=== PATIENT | male | born 1965 | race Caucasian/White ===

== ENCOUNTER 2024-01-23 22:14 | Emergency (ER) | payer OTHER ==
[2024-01-23 22:36] LABS: BASOPHILS % (AUTO) 0.5 %; EOSINOPHILS # (AUTO) 0.1 10^3/uL (0.0-0.7); EOSINOPHILS % (AUTO) 0.9 %; HCT - HEMATOCRIT 43.7 % (42.0-52.0); HGB - HEMOGLOBIN 14.6 g/dL (14.0-18.0); LYMPHOCYTES # (AUTO) 1.9 10^3/uL (1.5-3.5); MEAN CORPUSCULAR HEMOGLOBIN 29.2 pg (27.0-31.0); MEAN CORPUSCULAR HGB CONC 33.4 g/dL (32.0-36.0); MEAN CORPUSCULAR VOLUME 87.4 fL (80.0-94.0); MEAN PLATELET VOLUME 10.2 fL (7.4-11.4); MONOCYTES # (AUTO) 0.6 10^3/uL (0.0-1.0); MONOCYTES % (AUTO) 8.4 %; PLT - PLATELET COUNT 283 10^3/uL (130-450); RED CELL DISTRIBUTION WIDTH 13.5 % (12.0-15.0); WHITE BLOOD COUNT 6.6 x10^3/uL (4.8-10.8)
--- NOTE | 2024-01-23 22:40 | ED Physician Documentation ---
PD HPI FOCAL NEURO - Stated complaint Stated Complaint: L SIDE ARM/LEG NUMB - Chief complaint Chief Complaint: Neuro - History obtained from History obtained from: Patient - Additional information Additional information: HPI from patient. Approximately 2 hours [employer], while seated at work, patient had rapid onset of lightheadedness, visual changes ("saw stars", per patient), generalized weakness, mild generalized headache, and LUE/LLE paresthesias. He felt like he might pass out but did not have LOC. Denies chest pain, palpitations, dyspnea. Symptoms did not change with standing/ambulating, but have gradually resolved [employer] without specific intervention. Denies h/o similar symptoms. He notes that he is still having intermittent LUE/LLE paresthesias which are more pronounced in distal left arm and leg. PD PAST MEDICAL HISTORY - Past Medical History Past Medical History: No - Past Surgical History Past Surgical History: Yes General: Appendectomy - Present Medications Home Medications: Ambulatory Orders Medication Instructions Recorded Confirmed No Known Home Medications 01/23/24 01/23/24 - Allergies Allergies/Adverse Reactions: Allergies Allergy/AdvReac Type Severity Reaction Status Date / Time No Known Drug Allergies Allergy Verified 01/23/24 22:22 - Social History Does the pt smoke?: No Smoking Status: Never smoker Does the pt drink ETOH?: No Does the pt have substance abuse?: No - Immunizations Immunizations are current?: Yes PD ED PE NORMAL - Vitals Vital signs reviewed: Yes - General General: Alert and oriented X 3, No acute distress, Well developed/nourished - HEENT HEENT: PERRL, EOMI - Cardiac Cardiac: RRR, No murmur, No gallop, No rub - Respiratory Respiratory: No respiratory distress, Clear bilaterally - Abdomen Abdomen: Soft, Non tender - Derm Derm: Normal color - Neuro Neuro: Alert and oriented X 3, acid changer 2-12 intact, No motor deficit, No sensory deficit, Normal speech Eye Opening: Spontaneous Motor: Obeys Commands Verbal: Oriented GCS Score: 15 NIHSS - Level of Consciousness Level of consciousness: (0) Alert, Keenly responsive LOC Questions: (0) Answers both Q's correct LOC Commands: (0) Performs both correctly - Gaze Best Gaze: (0) Normal - Visual Visual: (0) No loss - Facial Palsy Facial Palsy: (0) Normal, symmetrical movement - Motor Arms (both separate) Motor Arm (right): (0) No drift Motor Arm (left): (0) No drift - Motor Legs (both separate) Motor Leg (right): (0) No drift Motor Leg (left): (0) No drift - Limb Ataxia Limb Ataxia: (0) Absent - Sensory Sensory: (0) Normal - Best Language Best Language: (0) No aphasia - Dysarthria Dysarthria: (0) Normal - Extinction and Inattention (formally neg Extinction and inattention: (0) No abnormality - Total Score/Results Total Score/Result: 0 Results - Vitals Vitals: Oxygen O2 Source Room air - EKG (time done) No standard instances EKG releavant findings:: EKG personally interpreted by author of this note. Relevant findings are: Rate: Rate (enter#) (59) Rhythm: NSR [place]: Normal Intervals: Normal NV, QRS normal QRS: Normal Ischemia: Normal ST segments - Labs Labs: Laboratory Tests 01/23/24 01/23/24 22:31 22:31 WBC 6.6 RBC 5.00 Hgb 14.6 Hct 43.7 MCV 87.4 MCH 29.2 MCHC 33.4 RDW 13.5 Plt Count 283 MPV 10.2 Neut # (Auto) 4.0 Lymph # (Auto) 1.9 [place] # (Auto) 0.6 Eos # (Auto) 0.1 Baso # (Auto) 0.0 Absolute Nucleated RBC 0.00 Nucleated RBC % 0.0 Sodium 138 Potassium 3.8 Chloride 106 Carbon Dioxide 25 Anion Gap 7.0 BUN 12 Creatinine 0.9 Estimated GFR (MDRD) 86 L Glucose 95 Calcium 9.6 Total Bilirubin 0.5 AST 16 ALT 14 Alkaline Phosphatase 68 Troponin I High Sens 3.1 Total Protein 7.4 Albumin 4.6 Globulin 2.8 Albumin/Globulin Ratio 1.6 Lipase 20 - Rads (name of study) CTA head/neck Relevant Findings:: Prelim report reviewed, See rad report chest xray Relevant Findings:: Prelim report reviewed, EMP independent interpretation of test, See rad report PD Medical Decision Making - ED course Complexity details: reviewed results, re-evaluated patient, considered differential, d/w patient ED course: No concerning nor diagnostic findings on tonight's tests including blood tests (includes normal hs-cTn), EKG, CXR, CTA head/neck. Etiology of symptoms is not apparent at this time. He is asymptomatic for most of ED stay except for mild episodic LUE/LLE paresthesias early in stay (he was having paresthesias during HPI/ROS but no diminished LTS intact on NIHSS exam; I commented on this to patient and he says that the symptoms had resolved between the HPI/ROS and the physical exam). Patient noted to have sinus bradycardia during ED stay with rates as low as mid- 40s but blood pressures within normal limits. Patient says he has had similar h eart rates over past few years. This is likely an incidental finding but I advised him to follow up with PCP, next available appointment, for reevaluation and consideration of other tests such as zio patch Departure - Departure Disposition: 01 Home, Self Care Clinical Impression: Near syncope, Paresthesias Condition: Good Instructions: ED Near Syncope Unkn, ED Paraesthesias Follow-Up: RUFUS OBRIEN DO [Primary Care Provider] - (Next available appointment) Comments: There were no concerning nor diagnostic findings on tonight's tests, including the EKG, blood tests, chest x-ray, and CT scans of your head and neck. The cause of your symptoms is not apparent at this time. Follow-up with your primary care provider, next available appointment, for reevaluation (even if your symptoms do not recur). Forms: PCP List Discharge Date/Time: 01/24/24 01:09
[2024-01-23 22:53] LABS: ALBUMIN 4.6 g/dL (3.2-5.5); ALBUMIN/GLOBULIN RATIO 1.6 (1.0-2.2); BILIRUBIN,TOTAL 0.5 mg/dL (0.2-1.0); CALCIUM 9.6 mg/dL (8.5-10.3); CREATININE 0.9 mg/dL (0.6-1.3); POTASSIUM 3.8 mmol/L (3.5-4.5); TOTAL PROTEIN 7.4 g/dL (6.4-8.9)
[2024-01-23 22:57] LABS: TROPONIN I HIGH SENSITIVITY 3.1 ng/L (2.3-19.7)
[2024-01-23] MEDS ORDERED: iohexoL-300 100 ML VIAL ONE (23:28)
[2024-01-24] MEDS: iohexoL-300 100 ML VIAL IVP ONE (00:05)
[2024-01-24 00:18] VITALS: BP 126/82; O2SAT 96
--- NOTE | 2024-01-24 00:39 | CT Report ---
PROCEDURE: Angio Head/Neck INDICATIONS: left-sided paresthesias TECHNIQUE: After the administration of intravenous contrast, 1 mm thick sections acquired from the aortic arch t hrough the [place] of [place]. 3-dimensional siaiqzk-urilqlwhd-jywmotquzs (MIP) and/or volume renderin g reformats were acquired of the central intracranial vasculature and neck separately. For radiation dose reduction, the following was used: automated exposure control, adjustment of mA and/or kV acco rding to patient size. CONTRAST: 100 ML OMNI 300 COMPARISON: None. FINDINGS: Image quality: Diagnostic. HEAD CT: CSF Spaces: Basal cisterns are patent. No extra-axial fluid collections. Ventricles are normal in size and shape. Brain: No significant abnormality is seen for scanning technique. Skull and face: Calvarium and visualized facial bones appear intact, without suspicious lesions. Sinuses: Visualized sinuses and mastoids are clear. HEAD CT ANGIOGRAPHY: Anterior circulation: Intracranial internal carotid arteries are normal in size and flow. The flow within the paired anterior cerebral arteries is normal and symmetric. The flow within the middle cer ebral arteries is normal and symmetric. The anterior communicating artery is seen. No aneurysms are seen. Posterior circulation: Visualized portions of the vertebral arteries demonstrate normal caliber, and join to form a normal appearing basilar artery. Flow within the posterior cerebral arteries is norm al and symmetric. No aneurysms are seen. NECK CT ANGIOGRAPHY: Carotid system: The great vessels demonstrate a conventional anatomy as they arise from the aortic a rch. The origins of the common carotid arteries appear patent. The common carotid arteries demonstr ate normal caliber and courses. The bifurcation regions are both widely patent. The internal caroti d arteries demonstrate normal calibers and courses. Posterior circulation: The origins of the vertebral arteries both appear widely patent. The more garcia perior extracranial portions of both vertebral arteries also demonstrate normal courses and calibers. They join to form a normal appearing basilar artery. Soft tissues: Visualized neck soft tissues demonstrate no suspicious abnormalities. Bones: No suspicious bony lesions. Visualized cervical spine appears normally aligned. IMPRESSION: No significant intracranial arterial abnormality is seen. No significant abnormality is seen within the arteries of the neck. No evidence of embolic disease within the intracranial arterial vasculature. The estimate of stenosis included in the report of the imaging study was calculated using the NASCET method Reviewed by: Junior Rodriguez MD on 01/24/2024 12:37 AM PDT Approved by: Junior Rodriguez MD on 01/24/2024 12:37 AM PDT Station ID: [id number]
--- NOTE | 2024-01-24 00:47 | XRAY Report ---
PROCEDURE: Chest 2V INDICATIONS: near-syncope TECHNIQUE: 2 views of the chest were acquired. COMPARISON: None. FINDINGS: Surgical changes and devices: None. Lungs and pleura: No pleural effusions or pneumothorax. Lungs are clear. Mediastinum: Mediastinal contours appear normal. Heart size is normal. Bones and chest wall: No suspicious bony lesions. Overlying soft tissues appear unremarkable. IMPRESSION: No acute cardiopulmonary process. Reviewed by: Junior Rodriguez MD on 01/24/2024 12:45 AM PDT Approved by: Junior Rodriguez MD on 01/24/2024 12:45 AM PDT Station ID: [id number]
== END 2024-01-24 01:09 | disposition home or self-care (01) ==
LOC: ED 22:14
DX: R55 Syncope and collapse (principal); R20.2 Paresthesia of skin
CPT/HCPCS: 36415; 70496; 70498; 71046; 80053; 83690; 84484; 85025; 93005; 99284; Q9967

== ENCOUNTER 2024-02-18 20:34 | Outpatient (CLI) | payer OTHER ==
--- NOTE | 2024-02-19 16:48 | Ultrasound Report ---
PROCEDURE: Carotid Doppler Complete INDICATIONS: DIZZINESS TECHNIQUE: Color and pulse Doppler interrogation was performed of both carotid systems, with image documentation and velocity measurements. COMPARISON: None. FINDINGS: Right side: Brachial blood pressure: 120/66 mm Hg. Common carotid artery peak systolic velocity: 99 cm/sec. Internal carotid artery peak systolic velocity: 61 cm/sec. Internal carotid artery end diastolic velocity: 15 cm/sec. External carotid artery peak systolic velocity: 71 cm/sec. ICA/CCA peak systolic ratio: 0.6 . [place] scale imaging description: Moderate plaque Percent internal carotid artery stenosis: Less than 50%. Vertebral artery: Flow direction is antegrade. Left side: Brachial blood pressure: 138/75 mm Hg. Common carotid artery peak systolic velocity: 100 cm/sec. Internal carotid artery peak systolic velocity: 80 cm/sec. Internal carotid artery end diastolic velocity: 27 cm/sec. External carotid artery peak systolic velocity: 144 cm/sec. ICA/CCA peak systolic ratio: 0.7 . [place] scale imaging description: Moderate plaque Percent internal carotid artery stenosis: Less than 50%. Vertebral artery: Flow direction is antegrade. IMPRESSION: 1. In the right internal carotid artery, there is less than 50% based on peak systolic velocity crite michael. 2. In the left internal carotid artery, there is less than 50% based on peak systolic velocity criter ia. 3. Antegrade blood flow within the right vertebral artery. 4. Antegrade blood flow within the left vertebral artery. The estimate of stenosis included in the report of the imaging study was calculated using the [facility]-end orsed standards of carotid artery stenosis. Reviewed by: Vivian Faulkner MD on 02/19/2024 4:46 PM PDT Approved by: Vivian Faulkner MD on 02/19/2024 4:46 PM PDT Station ID: [id number]
== END 2024-02-18 20:35 | disposition home or self-care (01) ==
LOC: DI 20:34
PROVIDERS: ATTEND Family Medicine
DX: I65.23 Occlusion and stenosis of bilateral carotid arteries (principal)
CPT/HCPCS: 93880

== ENCOUNTER 2024-02-19 08:54 | Outpatient (CLI) | payer OTHER ==
[~2024-02-19 08:54] MED LIST: GADOTERATE MEGLUMINE 7.5 MMOL/15 ML VIAL ONE
--- NOTE | 2024-02-19 16:28 | MRI Report ---
PROCEDURE: Thoracic Spine WO INDICATIONS: PARATHESIA OF SKIN TECHNIQUE: Noncontrast sagittal T1 spine echo and T2 fast spin echo, sagittal STIR, axial T1 and T2 fast spin ec ho through the thoracic spine. COMPARISON: None. FINDINGS: Image quality: Motion artifact is noted. Alignment and Curvature: There is accentuated thoracic kyphosis. No significant AP alignment abnor mality can be seen. Bone Marrow: Marrow is of normal overall signal. No acute vertebral body compression fractures. Spinal Cord: Visualized spinal cord is normal in size and signal. Paraspinous Soft Tissues: No paravertebral masses. Miscellaneous: At the T2-T3 level, there is a mild to moderate disc bulge, with a central/right disc protrusion, which continues into the right foraminal region, as on series 11 image 11. There is mild hypertrophy of the posterior elements. There is Moderate bilateral neural foraminal narrowing is see n. At the T10-T11 level, there is mild disc bulge seen, with a mild central disc protrusion. There is hy pertrophy of the posterior elements. Mild central canal narrowing is seen, with minimal mass effect u dru the ventral spinal cord. No significant neural foraminal narrowing can be seen. Milder degenerative changes are seen elsewhere. 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 Reviewed by: Robbin Madrigal MD on 02/19/2024 3:26 PM JESSICA Approved by: Robbin Madrigal MD on 02/19/2024 3:26 PM JESSICA Station ID: [id number]
== END 2024-02-19 08:55 | disposition home or self-care (01) ==
LOC: DI 08:54
PROVIDERS: ATTEND Family Medicine
DX: R20.2 Paresthesia of skin (principal); M47.814 Spondylosis without myelopathy or radiculopathy, thoracic region

== ENCOUNTER 2024-02-20 12:38 | Outpatient (CLI) | payer OTHER ==
--- NOTE | 2024-02-22 17:04 | MRI Report ---
PROCEDURE: MRI brain without contrast INDICATIONS: PARESTHESIA OF SKIN TECHNIQUE: Multiplanar multisequential MR images of the brain were obtained without contrast COMPARISON: CT angiogram head and neck 01/23/2024 FINDINGS: CSF Spaces: Basal cisterns are patent. No extra-axial fluid collections. Ventricles are normal in size and shape. Brain: No intracranial masses or hemorrhage. [place]/white matter interface is normal. Brainstem appe ars normal. Diffusion-weighted images shows no evidence of acute infarct. Normal intravascular flow voids are present. Small focus of probable gliosis noted in the medial right occipital cortex and subcortical white jocelin er with associated stippled cortical old blood products . No mass effect. Skull and face: Calvarium has normal marrow signal. Orbits appear normal. Sinuses: Sinuses and mastoids are clear. 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 Consider 6 month follow-up with and without contrast to assure appropriate evolution. Reviewed by: Blanco Dalton MD on 02/22/2024 4:03 PM JESSICA Approved by: Blanco Dalton MD on 02/22/2024 4:03 PM JESSICA Station ID: [id number]
--- NOTE | 2024-02-22 21:15 | MRI Report ---
PROCEDURE: MRI cervical spine without contrast INDICATIONS: PARESTHESIA OF SKIN TECHNIQUE: Multiplanar multisequential MRI of the cervical spine was obtained without contrast. COMPARISON: None. FINDINGS: Alignment and Curvature: There is normal bony alignment. Bone Marrow: Marrow demonstrates normal overall signal. Spinal Cord: Visualized spinal cord has normal size and signal. No cerebellar tonsillar herniation. Paraspinal Soft Tissues: No paravertebral masses. Prevertebral soft tissues are normal in thickness . C2-C3: Normal in appearance. C3-C4: Disc height is preserved. Focal paracentral right disc protrusion touches but does not indent the ventral cervical cord resulting in mild to moderate central stenosis. Moderate right and no left foraminal stenosis C4-C5: Normal in appearance. C5-C6: Normal in appearance. C6-C7: Normal in appearance. C7-T1: Normal in appearance. 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
== END 2024-02-20 12:39 | disposition home or self-care (01) ==
LOC: DI 12:38
PROVIDERS: ATTEND Family Medicine
DX: R20.2 Paresthesia of skin (principal); M50.21 Other cervical disc displacement, high cervical region; M48.02 Spinal stenosis, cervical region

== ENCOUNTER 2024-04-07 09:05 | Outpatient (CLI) | payer OTHER | END 2024-04-07 09:06 | disposition home or self-care (01) | LOC: DI 09:05 | PROVIDERS: ATTEND Family Medicine | DX: R55 Syncope and collapse (principal); R00.1 Bradycardia, unspecified | CPT/HCPCS: 93307 ==